=== PATIENT | male | born 1990 | race African-American/Black ===

== ENCOUNTER 2020-08-06 08:03 | Emergency (ER) | payer MEDICAID ==
[~2020-08-06] VITALS: Ht 170.2 cm; Wt 75.7 kg
[2020-08-06 08:06] VITALS: BP 134/76
--- NOTE | 2020-08-06 08:16 | NUR ---
ED Nurse Note: Pt walked in to ED c/o toothache x2 days. Pt reports swelling to left side of the face. Pt has been taking Tylenol and Advil. No fever. AAO x4 and ambulatory with non labored breathing.
[2020-08-06] MEDS ORDERED: Lidocaine 1%/ 10mg/ml/EPI 0.01mg/ml 20ml INJ ONE (08:22)
[2020-08-06] MEDS ORDERED: Lidocaine 2% Visc 15ml soln ONE (08:23)
[2020-08-06] MEDS ORDERED: Augmentin 875mg Tab ONE (08:23)
--- NOTE | 2020-08-06 08:23 | Emergency Room Report ---
History of Present Illness General Chief Complaint: Toothache Source: Patient Present Illness HPI Patient is a 29-year-old male presents for increased left-sided tooth ache and facial swelling. Reports having onset of symptoms approximately 2 days ago. Denies any prior medical history other than asthma as a child. Does not take any medications regularly. Reports having pain to the left upper side of his f amauri. Had not been having any fever. Did not take any medications prior to arrival. Denies any allergies. 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 COVID-19 Screening: Negative COVID-19 COVID-19 Testing Source: [facility] Patient History Past Medical History: see triage record Reviewed Nursing Documentation: PMH: Agreed; PSxH: Agreed Nursing Documentation-PMH Hx Asthma: Yes Review of Systems All Other Systems: negative except mentioned in HPI Physical Exam Vital Signs Date Time Temp Pulse Resp B/P (MAP) Pulse Ox O2 Delivery O2 Flow Rate FiO2 08/06/20 08:06 98.4 98 19 134/76 (95) 99 Sp02 EP Interpretation: reviewed, normal General Appearance: normal inspection, well appearing, no apparent distress, alert, GCS 15 Head: atraumatic ENT: normal ENT inspection, hearing grossly normal, normal voice, other - Left- sided facial swelling, fluctuance noted gingiva on the upper left side of the maxilla Neck: normal inspection, full range of motion, supple, no bony tend Respiratory: normal inspection, lungs clear, normal breath sounds, no respiratory distress, no retraction, no wheezing Cardiovascular #1: regular rate, rhythm, no edema Gastrointestinal: normal inspection, normal bowel sounds, non tender, soft, no guarding, no hernia Genitourinary: no CVA tenderness Musculoskeletal: normal inspection, back normal, normal range of motion Neurologic: alert, responsive, speech normal, normal inspection Psychiatric: normal inspection, judgement/insight normal, mood/affect normal Procedures Incision and Drainage Incision and Drainage : Consent: Emergent Site: Left upper maxillary Anesthesia: Lidocaine w/ Epi Volume Anesthetic (ccs): 3 Patient Tolerated: Well Complications: None Progress Drained approximately 3 cc of purulent material. Medical Decision Making Diagnostic Impression: Primary Impression: Dental abscess Additional Impression: Dental caries ER Course Patient presented for tooth ache. Differential diagnosis include was not limited to abscess, cellulitis, facial infection among others. Patient has a benign exam and does not appear to require any imaging or laboratory testing at this time. Patient was consented for incision and drainage.The left upper gingival area was anesthetized with approximately 2 cc of lidocaine with epi 1%. Incised 1/2 cm with drainage of large amount of purulent material. Patient tolerated this well. Bleeding was controlled with pressure with gauze. Patient given oral antibiotics. Is given prescription for pain medications and antibiotics. Patient was advised to follow-up with oral surgeon for recheck and possible repeat drainage. He was advised to return if worse. This medical record is generated with [employer] sales negotiator software. There may be some sales negotiator discrepancies related to use of this software Last Vital Signs Date Time Temp Pulse Resp B/P (MAP) Pulse Ox O2 Delivery O2 Flow Rate FiO2 08/06/20 08:06 98.4 98 19 134/76 (95) 99 Status: improved Disposition: HOME, SELF-CARE Condition: Stable Nitin Fish MD Aug 06, 2020 08:23
[2020-08-06] MEDS: Augmentin 875mg Tab ORAL ONE (08:25)
[2020-08-06] MEDS: Lidocaine 2% Visc 15ml soln ORAL ONE (08:26)
[2020-08-06] MEDS: Lidocaine 1%/ 10mg/ml/EPI 0.01mg/ml 20ml INJ ONE (08:26)
[2020-08-06] MEDS ORDERED: AUGMENTIN 875-1 EAC1 ORAL (08:52)
[2020-08-06] MEDS ORDERED: ACETAMINOPHEN-1 EAC1 ORAL (08:52)
[2020-08-06] MEDS ORDERED: IBUPROFEN600 M1 ORAL (08:52)
[2020-08-06 08:58] VITALS: BP 134/76
--- NOTE | 2020-08-06 08:58 | NUR ---
ED Nurse Note: Pt cleared by ERMD for discharge. DC instructions/prescription was given and explained to pt and verbalized understanding of teachings. All medical deviecs such as ID band removed. Pt is AAO x4, ambulatory and left with all personal belongings.
== END 2020-08-06 08:58 | disposition home or self-care (01) ==
LOC: EMR 08:35
DX: K04.7 Periapical abscess without sinus (principal); K02.9 Dental caries, unspecified; J45.909 Unspecified asthma, uncomplicated
CPT/HCPCS: 10060; Z7502; 99282